=== PATIENT | female | born 1995 | race African-American/Black ===

== ENCOUNTER 2016-12-16 13:16 | Emergency (ER) | payer SELFPAY ==
[~2016-12-16] VITALS: Ht 172.7 cm; Wt 86.4 kg
[2016-12-16 13:37] VITALS: BP 150/88; TEMP 98.6
[2016-12-16] MEDS ORDERED: FLEXERIL5 MG PO (16:01)
[2016-12-16 16:11] VITALS: PULSE 70
== END 2016-12-16 16:18 | disposition home or self-care (01) ==
LOC: COL.ER 13:16 → EDBD 13:46 → COL.ER 13:46
DX: M43.6 Torticollis (principal)

== ENCOUNTER 2017-09-18 03:42 | Emergency (ER) | payer SELFPAY ==
[~2017-09-18] VITALS: Ht 172.7 cm; Wt 83.5 kg
[~2017-09-18 03:42] MED LIST: FLEXERIL5 MG PO
[2017-09-18 03:49] VITALS: TEMP 98.4
[2017-09-18] MEDS ORDERED: ZANAFLEX2 MG PO (07:08)
[2017-09-18 07:10] VITALS: BP 134/93; PULSE 78
== END 2017-09-18 07:14 | disposition home or self-care (01) ==
LOC: COL.ER 03:42
DX: M62.838 Other muscle spasm (principal)

== ENCOUNTER 2020-03-01 11:08 | Emergency (ER) | payer OTHER ==
[~2020-03-01] VITALS: Ht 172.7 cm; Wt 72.7 kg
[~2020-03-01 11:08] MED LIST changes: +ZANAFLEX2 MG PO
[2020-03-01 11:20] VITALS: TEMP 97.8
[2020-03-01 11:47] LABS: COLLECTION METHOD CLEAN CATCH
[2020-03-01 12:05] LABS: PH 7 (5-8); SQUAMOUS EPITHELIAL 0-2 /hpf; URINE APPEARANCE Clear; URINE BACTERIA None Seen /hpf; URINE BILIRUBIN Negative (NEGATIVE); URINE BLOOD 1+ (NEGATIVE); URINE COLOR Straw; URINE GLUCOSE Negative (NEGATIVE); URINE KETONE Negative (NEGATIVE); URINE LEUKOCYTE ESTERASE 1+ (NEGATIVE); URINE NITRATE Negative (NEGATIVE); URINE PROTEIN(semi-quant) Negative (NEGATIVE); URINE RBC 0-2 /hpf; URINE UROBILINOGEN Negative (NEGATIVE)
[2020-03-01 12:27] LABS: BASO % 1.1 % (0.0-2.0); EOS % 1.4 % (0-4.0); HEMATOCRIT 43.3 % (37.0-47.0); HEMOGLOBIN 13.7 g/dl (12.5-16.0); LYMPH # 1.5 (1.2-3.4); LYMPH % 52.3 % (20.0-51.0); MEAN CELL VOLUME 87 fl (80.0-100.0); MEAN CORPUSCULAR HEMOGLOBIN 28 pg (27.0-31.0); MEAN CORPUSCULAR HGB CONC 32 g/dl (33.0-37.0); MEAN PLATELET VOLUME 10.6 fl (7.4-10.4); MONO # 0.2 (0.1-0.6); MONO % 8.2 % (1.7-9.3); PLATELET COUNT 179 K/mm3 (130-400); RED BLOOD COUNT 4.97 M/mm3 (4.10-5.30)
[2020-03-01 12:41] LABS: ALANINE AMINOTRANSFERASE 17 U/L (4-34); ALBUMIN 4.6 gm/dL (3.5-5.0); ALKALINE PHOSPHATASE 65 U/L (50-136); ANION GAP 8 mmol/L (7-16); AST,SGOT 32 U/L (15-37); BILIRUBIN,TOTAL 0.5 mg/dL (0.0-1.0); BLOOD UREA NITROGEN 7 mg/dL (7-17); CALCIUM 9.5 mg/dL (8.4-10.2); CARBON DIOXIDE 28 mmol/L (22-30); CHLORIDE 104 mmol/L (98-107); CREATININE, serum 0.73 (0.52-1.25); GLUCOSE 103 mg/dL (74-106); POTASSIUM 3.8 mmol/L (3.4-5.0); SODIUM 141 mmol/L (137-145); TOTAL PROTEIN 8.2 gm/dL (6.4-8.2)
[2020-03-01 12:43] LABS: C-REACTIVE PROTEIN < 0.5 mg/dL (0.0-0.9)
[2020-03-01] MEDS ORDERED: CEFTIN500 MG PO (14:14)
[2020-03-01 14:25] VITALS: BP 135/105; PULSE 71
== END 2020-03-01 14:27 | disposition home or self-care (01) ==
LOC: COL.ER 11:08
PROVIDERS: Emergency Medicine; Nurse Practitioner
DX: N39.0 Urinary tract infection, site not specified (principal); Z32.02 Encounter for pregnancy test, result negative; Z88.0 Allergy status to penicillin; Z79.891 Long term (current) use of opiate analgesic